=== PATIENT | female | born 1955 | race Caucasian/White ===

== ENCOUNTER 2019-12-27 11:13 | Emergency (ER) | payer MEDICARE, OTHER, SELFPAY ==
[2019-12-27 11:25] VITALS: BP 149/75; PULSE 73; RESP 13; TEMP 37.2; O2SAT 96; BMI 41.1
--- NOTE | 2019-12-27 11:34 | DI.RAD.S_ITS ---
PROCEDURE: XR ANKLE RT MIN 3V INDICATIONS: ankle/lower leg pain after rolling ankle TECHNIQUE: 3 views of the ankle were acquired. COMPARISON: None. FINDINGS: Bones: Subtle nondisplaced oblique tear involving distal fibular shaft is seen. No other fracture or dislocation. Ankle mortise is normally aligned. No suspicious bony lesions. Soft tissues: No tibiotalar joint effusion. Achilles tendon appears normal. IMPRESSION: Subtle nondisplaced distal fibular shaft fracture. No dislocation. Dictated by: Vinnie Chen M.D. on 12/27/2019 at 10:54 Approved by: Vinnie Chen M.D. on 12/27/2019 at 10:56
--- NOTE | 2019-12-27 12:12 | ED.LOWEXIN ---
HPI - Extremity Injury (Lower) <Clary Lara, DIRECTOR VISUAL-BC - Last Filed: 12/27/19 14:13> General Chief Complaint: Extremity Injury, Lower Stated Complaint: sprained right ankle mon Time Seen by Provider: 12/27/19 11:31 Source: patient Mode of arrival: Wheelchair Limitations: no limitations History of Present Illness HPI Narrative: 64-year-old female nonsmoker presents with her for chief complaint of a right ankle injury. She states that she slipped after going down some steps, did not fall down stairs, she rotated her ankle. She states since then she has had a lot of pain in her ankle. She denies any other injuries from this. She states that the pain is mostly on the outside of her ankle, going up her leg. She denies any knee pain or hip pain. She has been using Tylenol Motrin ice packs. She states that she tried to get in with primary care provider but they were unable to see here and they wanted to make sure that her ankle is not broken. She denies any previous injuries to this area. Related Data Home Medications Medication Instructions Recorded Confirmed BUPROPION HCL (Bupropion XL) 300 mg PO QDAY #0 07/29/11 CHOLECALCIFEROL (VITAMIN D3) 2,000 iu PO QDAY #0 07/29/11 (Vitamin D-3) Fexofenadine Hydrochloride 180 mg PO QDAY #0 07/29/11 (#FEXOFENADINE HCL) ascorbic acid (vitamin C) 500 mg PO QDAY #0 07/29/11 levothyroxine 175 mcg PO QDAY #0 07/29/11 lisinopril 40 mg PO QDAY #0 07/29/11 meclizine 25 mg PO TIDPRN #0 07/29/11 meloxicam [Mobic] 15 mg PO QHS #0 07/29/11 spironolactone 25 mg PO QDAY #0 07/29/11 B.ANI/L.ACI/L.JR/L.PLAN/L.RUSS 1 cap PO BID #0 08/02/11 (Probiotic Formula Capsule) [MEGAZYNE] 1 PO BID #0 08/02/11 [NIOXIN] 1 PO HS #0 08/02/11 atenolol 25 mg PO HS #0 05/08/12 esomeprazole magnesium [Nexium] 40 mg PO HS #0 08/02/11 metformin [Glucophage XR] 500 mg PO HS #0 08/02/11 metoclopramide HCl 10 mg PO HS #0 08/02/11 venlafaxine [Effexor XR] 150 mg PO HS #0 08/02/11 Previous Rx's Medication Instructions Recorded hydrocodone-acetaminophen [[place]] 1 tab PO Q4-6H PRN #10 tab 12/27/19 Allergies Allergy/AdvReac Type Severity Reaction Status Date / Time erythromycin base Allergy Unknown Verified 12/27/19 11:31 theophylline Allergy Unknown Verified 12/27/19 11:31 Review of Systems <TIM [facility]W. D[facility] - Last Filed: 12/27/19 14:13> Review of Systems Narrative: GENERAL: Denies chills, fatigue, malaise, fever, sweats. HEENT: Denies sinus pain, ear pain, sore throat, difficulty swallowing, dizziness. RESPIRATORY: Denies dyspnea, cough, wheezing, hemoptysis, sputum. CARDIOVASCULAR: Denies chest pain, palpitations, orthopnea, edema, GASTROINTESTINAL: Denies nausea, vomiting, abdominal pain, diarrhea, constipation, melena. : Denies dysuria, frequency, incontinence, hematuria, urinary retention. MUSCULOSKELETAL: See HPI SKIN: Denies rash, skin lesions, or other NEUROLOGIC: Denies weakness, headache, numbness, change in speech, confusion, seizures, incoordination. PSYCHIATRIC: No concerning psychosocial issues. 12 point review of systems is negative except for those stated above Patient History <PATRICIA Brandon - Last Filed: 12/27/19 14:13> Social History Smoking Status: Unknown if ever smoked Smoking Status: Unknown if ever smoked alcohol intake frequency: holidays/special occasions only Substance Use Type: does not use Exam <TIM BrandonW. D[facility] - Last Filed: 12/27/19 14:13> Narrative Exam Narrative: GENERAL: This is a well-nourished, well-developed patient, in no acute distress HEAD: Atraumatic. Normocephalic. No temporal or scalp tenderness. EYES: Pupils equal round and reactive. Extraocular motions intact. No scleral icterus. No injection or drainage. ENT: Nose without bleeding, purulent drainage or septal hematoma. Wearing a mask. Airway patent. NECK: Trachea midline. No JVD or lymphadenopathy. Supple, nontender, no meningeal signs. CARDIOVASCULAR: Regular rate and rhythm RESPIRATORY: Clear to auscultation. Breath sounds equal bilaterally. No wheezes, rales, or rhonchi. No cough. No increased respiratory effort. No accessory muscle use. GASTROINTESTINAL: Abdomen soft, non-tender, nondistended. No hepato-splenomegaly, or palpable masses. No guarding. EXTREMITIES: BACK: Nontender without deformity or crepitance. No flank tenderness. NEURO: AOx3. SKIN: Pain to palpation superior to right lateral malleolus, able to flex and extend right ankle though slightly. No pain to palpation right foot. Positive pedal pulses right foot. Cap refill less than 2 seconds all toes right foot no pain of location medial malleolus, no pain to palpation right knee. Initial Vital Signs Initial Vital Signs: Vital Signs Temperature 98.9 F 12/27/19 11:25 Pulse Rate 73 12/27/19 11:25 Respiratory Rate 13 12/27/19 11:25 Blood Pressure 149/75 H 12/27/19 11:25 Pulse Oximetry 96 12/27/19 11:25 <Kandi Currie MD - Last Filed: 12/27/19 18:06> Initial Vital Signs Initial Vital Signs: Vital Signs Temperature 98.9 F 12/27/19 11:25 Pulse Rate 73 12/27/19 11:25 Respiratory Rate 13 12/27/19 11:25 Blood Pressure 149/75 H 12/27/19 11:25 Pulse Oximetry 96 12/27/19 11:25 Procedures <FRIDA Brandon - Last Filed: 12/27/19 14:13> Orthopedic Splinting/Casting Injury #1: Side: right Lower Extremity Injury Location: ankle Lower Extremity Immobilizer: boot orthosis Post splinting neuro exam: intact Post splinting vascular exam: intact Placed by: Nursing Additional Comments: pt has walker at home Scores <FRIDA Brandon - Last Filed: 12/27/19 14:13> GCS [place] coma scale eye opening: Spontaneous Amie coma scale verbal response: Orientated [place] coma scale motor response: Obey commands Amie coma scale total score: 15 Course <FRIDA Brandon - Last Filed: 12/27/19 14:13> Orders Ordered: ED Orders 12/27/19 11:34 XR ankle RT min 3V Stat Discontinued Medications Hydrocodone Bitart/Acetaminophen ([place] 5/325) 1 tab PO NOW ONE Stop: 12/27/19 12:24 Last Admin: 12/27/19 12:27 Dose: 1 tab Documented by: LIAM Reevaluation(s) Reevaluation #1: Discussed with the patient her x-ray report, distal fibular fracture, very subtle nondisplaced. Plan on pain medicine before walking boot. Time: 12:25 Vital Signs Vital signs: Vital Signs - 8 hr 12/27/19 11:25 12/27/19 12:58 12/27/19 13:22 Temperature 98.9 F 97.8 F Pulse Rate 73 65 64 Respiratory Rate 13 18 18 Blood Pressure 149/75 H 143/65 H 132/62 Pulse Oximetry 96 97 100 12/27/19 13:52 Temperature Pulse Rate 64 Respiratory Rate 15 Blood Pressure 140/87 Pulse Oximetry 95 <Kandi Currie MD - Last Filed: 12/27/19 18:06> Orders Ordered: ED Orders 12/27/19 11:34 XR ankle RT min 3V Stat Discontinued Medications Hydrocodone Bitart/Acetaminophen ([place] 5/325) 1 tab PO NOW ONE Stop: 12/27/19 12:24 Last Admin: 12/27/19 12:27 Dose: 1 tab Documented by: LIAM Vital Signs Vital signs: Vital Signs - 8 hr 12/27/19 11:25 12/27/19 12:58 12/27/19 13:22 Temperature 98.9 F 97.8 F Pulse Rate 73 65 64 Respiratory Rate 13 18 18 Blood Pressure 149/75 H 143/65 H 132/62 Pulse Oximetry 96 97 100 12/27/19 13:52 Temperature Pulse Rate 64 Respiratory Rate 15 Blood Pressure 140/87 Pulse Oximetry 95 MDM - Extremity Injury (Lower) <FRIDA Brandon - Last Filed: 12/27/19 14:13> Differential Diagnosis Differential diagnosis: Likely ankle sprain and strain, ankle fracture and other Imaging Data Extremity x-ray #1: Radiologist's Impression: [address] [place] [id number] XRay Report Signed Patient: Debra Perera GMR#: [id number] : 5Acct:[id number] Age/Sex: 64 / FDate of Service: 12/27/19 Loc: ED Accession Number: [id number] Procedure: XR ankle RT min 3V Ordering Provider: Clary Lara PROCEDURE: XR ANKLE RT MIN 3V INDICATIONS: ankle/lower leg pain after rolling ankle TECHNIQUE: 3 views of the ankle were acquired. COMPARISON: None. FINDINGS: Bones: Subtle nondisplaced oblique tear involving distal fibular shaft is seen. No other fracture or dislocation. Ankle mortise is normally aligned. No suspicious bony lesions. Soft tissues: No tibiotalar joint effusion. Achilles tendon appears normal. IMPRESSION: Subtle nondisplaced distal fibular shaft fracture. No dislocation. Dictated by: Vinnie Chen M.D. on 12/27/2019 at 10:54 Approved by: Vinnie Chen M.D. on 12/27/2019 at 10:56 MDM Narrative Medical decision making narrative: The patient is a 64-year-old female who presents with a chief complaint of a right ankle injury on Monday afternoon. She is noted to have a nondisplaced very subtle fibular fracture in the distal end of her fibula. She was placed in a walking boot, neurovascular intact throughout. [place] worked well for her, small prescription given. Discussed at length follow up with primary care provider, monitoring for any acute concerns and coming back to the ER for acute concerns. Patient has no questions or concerns upon discharge states understanding return precautions as well as follow-up care. She is able to ambulate with a steady gait with her walking boot, states that she has a walker at home and does not need a new one. She has been neurovascularly intact oriented and nontoxic appearing throughout her stay in the ER. Discharge Plan Departure Patient Disposition: Home Clinical Impression: Fracture of distal end of fibula Qualifiers: Encounter type: initial encounter Fracture type: closed Fracture morphology: unspecified fracture morphology Laterality: right Qualified Code(s): S82.831A - Other fracture of upper and lower end of right fibula, initial encounter for closed fracture Discharge Date/Time: 12/27/19 13:55 Instructions: DI for Fracture, How To Perform RICE (Rest, Ice, Compress, Elevate), How to Use a Walking Boot Activity Restrictions/Additional Instructions: Thank you for trusting us with your care today As discussed you have a subtle fracture of the your fibula. I have given you a prescription of [place] for pain and we have placed you in a walking boot. Please follow-up with primary care provider in the next fewPlease come back to the emergency department days. I have given you contact information to [facility] in case her primary care provider would like you to follow-up with. Please continue to use rest ice compression elevation. I have given you a prescription of a narcotic for pain. Be aware that this can be constipating and sedating. I encouraged taking with a stool softener, pushing fluids and fiber. Do not take and drive, operate heavy machinery, etc. Do not combine it with any other sedating substances such as alcohol. The combination of narcotics and alcohol and/or other sedatives can be lethal. Please come back to the emergency department for any acute concerns such as decreased circulation of your foot Prescriptions: New hydrocodone-acetaminophen [[place]] 5-325 mg tablet 1 tab PO Q4-6H PRN (Reason: pain) Qty: 10 RF: 0 No Action meloxicam [Mobic] 15 MG tablet 15 mg PO QHS Qty: 0 RF: 0 lisinopril 40 MG tablet 40 mg PO QDAY Qty: 0 RF: 0 BUPROPION HCL (Bupropion XL) 300 mg PO QDAY Qty: 0 RF: 0 spironolactone 25 MG tablet 25 mg PO QDAY Qty: 0 RF: 0 levothyroxine 150 MCG tablet 175 mcg PO QDAY Qty: 0 RF: 0 Fexofenadine Hydrochloride (#FEXOFENADINE HCL) 180 mg PO QDAY Qty: 0 RF: 0 meclizine 25 MG tablet,chewable 25 mg PO TIDPRN Qty: 0 RF: 0 ascorbic acid (vitamin C) 500 MG tablet 500 mg PO QDAY Qty: 0 RF: 0 CHOLECALCIFEROL (VITAMIN D3) (Vitamin D-3) 2,000 iu PO QDAY Qty: 0 RF: 0 venlafaxine [Effexor XR] 150 MG capsule,extended release 24hr 150 mg PO HS Qty: 0 RF: 0 [NIOXIN] 1 PO HS Qty: 0 RF: 0 atenolol 25 MG tablet 25 mg PO HS Qty: 0 RF: 0 esomeprazole magnesium [Nexium] 40 MG capsule,delayed release(DR/EC) 40 mg PO HS Qty: 0 RF: 0 metformin [Glucophage XR] 500 MG tablet extended release 24 hr 500 mg PO HS Qty: 0 RF: 0 metoclopramide HCl 10 MG tablet 10 mg PO HS Qty: 0 RF: 0 B.ANI/L.ACI/L.JR/L.PLAN/L.RUSS (Probiotic Formula Capsule) 1 cap PO BID Qty: 0 RF: 0 [MEGAZYNE] 1 PO BID Qty: 0 RF: 0 Referrals: [facility] [Provider Group] Jerod Bernal DO [Primary Care Provider] - <Kandi Currie MD - Last Filed: 12/27/19 18:06> [facility]: I was immediately available in the department for consultation throughout this patient's visit. I agree with documentation as above. Kandi Currie MD
[2019-12-27] MEDS: HYDROCODONE/ACET 5/325 TABLET 1 TAB PO (12:27)
[2019-12-27 12:58] VITALS: BP 143/65; PULSE 65; RESP 18; O2SAT 97
[2019-12-27 13:22] VITALS: BP 132/62; PULSE 64; RESP 18; TEMP 36.6; O2SAT 100
[2019-12-27 13:52] VITALS: BP 140/87; PULSE 64; RESP 15; O2SAT 95
== END 2019-12-27 13:55 | disposition home or self-care (01) ==
PROVIDERS: Emergency Provider Nurse Practitioner Family; PCP Student in an Organized Health Care Education/Training Program
DX: S82.831A Other fracture of upper and lower end of right fibula, initial encounter for closed fracture (principal); W18.43XA Slipping, tripping and stumbling without falling due to stepping from one level to another, initial encounter
CPT/HCPCS: 73610; 99283

== ENCOUNTER → 2020-01-09 16:33 | Outpatient (CLI) | payer MEDICARE, OTHER, SELFPAY ==
--- NOTE | 2020-01-09 | DI.MRI.S_ITS ---
PROCEDURE: MR SHOULDER LT WO CON INDICATIONS: PAIN IN LEFT SHOULDER TECHNIQUE: Noncontrast oblique coronal T2 fast spin echo with fat saturation, oblique sagittal T1 spin echo and T2 fast spin echo with fat saturation, axial T1 spin echo and T2 fast spin echo with fat saturation through the shoulder. COMPARISON: None. FINDINGS: Image quality: Excellent. Rotator cuff: There is a small low grade intrasubstance tear of the supraspinatus tendon at the distal footprint superimposed on moderate supraspinatus and infraspinatus tendinosis. The teres minor tendon is intact. There is mild subscapularis tendinosis. There is no significant rotator cuff muscle atrophy. Bones and bursae: No acute bone marrow contusions or fractures. There is no significant glenohumeral joint effusion. There is mild acromioclavicular joint osteoarthrosis. No pathologic subacromial-subdeltoid or subcoracoid bursal fluid is present. Capsule and soft tissues: There is mild degeneration of the superior labrum without a displaced tear. The long head of the biceps tendon demonstrates mild tendinosis. There is mild partial effacement of the rotator interval fat. The inferior glenohumeral ligament is mildly thickened. IMPRESSION: 1. Small low-grade intrasubstance tear of the supraspinatus tendon at the distal footprint. Moderate supraspinatus and infraspinatus tendinosis. Mild subscapularis tendinosis. 2. Mild tendinosis of the intra-articular portion of the biceps long head tendon. 3. Degeneration of the superior glenoid labrum without a definite displaced tear. 4. Partial effacement of the rotator interval fat and mild thickening of the inferior glenohumeral ligament are nonspecific, but can be seen in the setting of the clinical syndrome of adhesive capsulitis. Dictated by: Frederick Silva M.D. on 01/10/2020 at 8:58 Approved by: Frederick Silva M.D. on 01/10/2020 at 9:10
== END ==
PROVIDERS: PCP Student in an Organized Health Care Education/Training Program; Referring Provider Student in an Organized Health Care Education/Training Program; Visit Provider Student in an Organized Health Care Education/Training Program
DX: M25.512 Pain in left shoulder (principal); M75.112 Incomplete rotator cuff tear or rupture of left shoulder, not specified as traumatic; M19.012 Primary osteoarthritis, left shoulder
CPT/HCPCS: 73221

== ENCOUNTER → 2020-04-23 19:06 | Outpatient (ROUT) | payer MEDICARE, OTHER, SELFPAY ==
[2020-04-23 19:26] LABS: Add Manual Diff / Slide Review NO; Basophils Absolute Auto 100 /uL (0-100); Basophils Percent Auto 0.9 % (0-2); Eosinophils Absolute Auto 200 /uL (0-450); Eosinophils Percent Auto 1.4 % (2-4); Hematocrit 42.6 % (36-46); Lymphocytes Absolute Auto 2400 /uL (1100-4500); Mean Corpuscular HGB Conc 32.8 % (30-36); Mean Corpuscular Hemoglobin 28.4 PG (26-34); Mean Corpuscular Volume 86.4 fL (80-100); Monocytes Absolute Auto 1000 /uL (0-900); Monocytes Percent Auto 9.1 % (3-14); Neutrophils Absolute Auto 7200 /uL (1500-7000); Neutrophils Percent Auto 66.6 % (50-75); Platelet Count 298 X10^3/uL (150-400); Red Blood Cell Count 4.93 X10^6/uL (4.0-5.2); Red Cell Distribution Width 15.6 % (11.6-14.8); White Blood Cell Count 10.8 X10^3/uL (4.5-11.0)
[2020-04-23 19:33] LABS: Alanine Aminotransferase 23 IU/L (<35); Albumin 3.8 g/dL (3.5-5.0); Albumin Globulin Ratio 1.3 (1.0-2.8); Alkaline Phosphatase 124 U/L (38-126); Aspartate Aminotransferase 26 IU/L (14-36); BUN Creatinine Ratio 18.5 (6-22); Bilirubin Total 0.3 mg/dL (0.2-1.3); Blood Urea Nitrogen 17 mg/dL (7-17); Calcium 9.4 mg/dL (8.4-10.2); Carbon Dioxide 32 mmol/L (22-32); Chloride 101 mmol/L (98-107); Cholesterol 203 mg/dL (140-199); Estimated Glomerular Filt Rate > 60.0 mL/min (>60); Glucose 125 mg/dL (80-110); HDL Cholesterol 45 mg/dL (40-60); HEMOLYSIS < 15 (0-50); LDL Cholesterol Calculated 102 mg/dL (<100); Potassium 4.9 mmol/L (3.4-5.1); Sodium 137 mmol/L (137-145); Total Protein 6.8 g/dL (6.3-8.2); Triglycerides 280 mg/dL (35-150)
[2020-04-23 20:03] LABS: TSH w/ Reflex to FT4 4.53 uIU/mL (0.47-4.68)
== END ==
PROVIDERS: PCP Student in an Organized Health Care Education/Training Program; Visit Provider Physician Assistant
DX: E03.9 Hypothyroidism, unspecified (principal); I10 Essential (primary) hypertension; E78.5 Hyperlipidemia, unspecified
CPT/HCPCS: 80053; 80061; 84443; 85025